=== PATIENT | male | born 1955 | race Caucasian/White ===

== ENCOUNTER 2016-09-29 03:03 | Emergency (ER) | payer OTHER ==
[~2016-09-29] VITALS: Ht 162.6 cm; Wt 79.1 kg
[2016-09-29 03:07] VITALS: Ht 162.6 cm; Wt 79.1 kg
--- NOTE | 2016-09-29 04:00 | ERA ---
ER Documentation Chief Complaint Date/Time DATE: 09/29/16 TIME: 03:59 Chief Complaint dizziness/vomiting x 1 hour. feels high blood pressure at home. no cp HPI The patient is a 60-year-old male, presenting to the ER because of acute vertigo , he feels as if the room is spinning. Has similar symptoms previously, complains of right ear with decreased hearing. He denies syncope, near syncope , neck pain, chest pain, abdominal pain, vomiting, dysuria, diarrhea. He does not smoke nor drink Past medical history: Hypertension, diabetes mellitus, insomnia past Surgical history: None ROS All systems reviewed and are negative except as per history of present illness. Medications Home Meds Active Scripts Ondansetron (Ondansetron Odt) 4 Mg Tab.rapdis, 4 MG PO Q6H Y for NAUSEA AND/OR VOMITING, #10 TAB Prov:CAMACHO WILLIS MD 09/29/16 Meclizine Hcl* (Antivert*) 12.5 Mg Tab, 25 MG PO Q6H Y for DIZZINESS, #20 TAB Prov:CAMACHO WILLIS MD 09/29/16 Allergies Allergies: Coded Allergies: No Known Allergy (Unverified , 12/04/14) PMhx/Soc Hx Cardiac Disorders: Yes (HTN) Hx Miscellaneous Medical Probl: Yes (DM) Hx Alcohol Use: No Hx Substance Use: No Hx Tobacco Use: No Physical Exam Vitals Vital Signs Date Time Temp Pulse Resp B/P Pulse Ox O2 Delivery O2 Flow Rate FiO2 09/29/16 05:31 97.9 72 18 148/71 98 Room Air 09/29/16 03:07 97.9 87 20 168/79 100 Physical Exam Const: No acute distress. Head: Atraumatic. Eyes: Normal Conjunctiva. ENT: Normal External Ears, Nose and Mouth. Right ear with moderate amount of cerumen Neck: Full range of motion. No meningismus. Resp: Clear to auscultation bilaterally. Cardio: Regular rate and rhythm, no murmurs. Abd: Soft, non distended, normal bowel sounds, non tender. Skin: No petechiae or rashes. Back: No midline or flank tenderness. Ext: No cyanosis, or edema. Neur: Awake and alert. No focal deficit Psych: Normal Mood and Affect. Results 24 hrs Current Medications Medications (Trade) Dose Ordered Sig/Sangeeta Route PRN Reason Start Time Stop Time Status Last Admin Dose Admin Meclizine HCl (Antivert) 25 mg ONCE ONCE PO 09/29/16 04:30 09/29/16 04:31 DC 09/29/16 04:27 Ondansetron HCl (Zofran Odt) 4 mg ONCE STAT ODT 09/29/16 04:58 09/29/16 04:59 DC 09/29/16 05:14 Procedures/MDM EKG: Read by emergency physician Rate/Rhythm: Normal Sinus Rhythm 68 beats/min QRS, ST, T-waves: No ST elevation, no T inversion, inferior Q waves Impression: Abnormal EKG [place] [id number] Radiology Main Line: [phone] DIAGNOSTIC IMAGING REPORT Patient: DENISE SPAULDING : 1955 Age: 60 Sex: M MR #: [id number] DOS: 09/29/16 0415 Ordering MD: CAMACHO WILLIS MD Location: E/R Room/Bed: PROCEDURE: CT BRAIN WITHOUT CONTRAST CLINICAL INDICATION: 60-year-old male with dizziness. TECHNIQUE: The study was performed utilizing [employer] VCT 64-slice CT scanner. Direct axial sections were obtained from the foramen magnum to the vertex without the use of intravenous contrast material. Sagittal and coronal reformations were obtained. Automated exposure control and iterative reconstruction techniques were utilized for this examination. The images were viewed on a PACS workstation. CTD/vol = 36.2 mGy; Total Exam DLP = 634.2 mGy- cm. COMPARISON: And December 04, 2014. FINDINGS: There is mild prominence of the sulci and cisternal spaces consistent with diffuse volume loss. Otherwise, the ventricles have a normal shape and position. The ventricular configuration is without significant interval change. There is no evidence for mass effect or midline shift. There are no intracranial areas of abnormal attenuation. There is no evidence for acute intra or extra-axial blood. The bony calvarium is intact. There is mild mucosal thickening within the ethmoid air cells bilaterally. No air-fluid levels are noted. The mastoid air cells are without significant soft tissue. IMPRESSION: 1. Mild diffuse volume loss. 2. Mild mucosal thickening ethmoid air cells. .Pravin Vasquez MD, MD Date Time Electronically viewed and signed by .Pravin Vasquez MD, MD on 09/29/2016 04:51 .M/ CC: CAMACHO WILLIS MD MEDICAL MAKING DECISION: The patient is a 60-year-old male, presenting with acute dizziness, most likely benign positional vertigo. He was treated with Antivert and Zofran with good response. The differential diagnoses considered include but are not limited to central causes such as cerebellar infarct, cerebellar hemorrhage, cerebellar tumor, acoustic neuroma, peripheral causes such as benign positional vertigo, labyrinthitis, medication, Meniere's disease. Departure Diagnosis: Primary Impression: Dizziness Condition: Good Comments I discussed the findings with the patient. I advised the patient to follow-up with the primary physician in about 1-2 days, sooner if needed and return if any concern. CAMACHO WILLIS MD Sep 29, 2016 04:00
[2016-09-29] MEDS ORDERED: MECLIZINE 12.5 MG TAB PO ONE (04:30)
--- NOTE | 2016-09-29 04:51 | RADRPT ---
PROCEDURE: CT BRAIN WITHOUT CONTRAST CLINICAL INDICATION: 60-year-old male with dizziness. TECHNIQUE: The study was performed utilizing [employer] VCT 64-slice CT scanner. Direct axial sections were obtained from the foramen magnum to the vertex without the use of intravenous contrast material. Sagittal and coronal reformations were obtained. Automated exposure control and iterativ e reconstruction techniques were utilized for this examination. The images were viewed on a PACS [employer]. CTD/vol = 36.2 mGy; Total Exam DLP = 634.2 mGy-cm. COMPARISON: And December 04, 2014. FINDINGS: There is mild prominence of the sulci and cisternal spaces consistent with diffuse volume loss. Oth erwise, the ventricles have a normal shape and position. The ventricular configuration is without si gnificant interval change. There is no evidence for mass effect or midline shift. There are no int racranial areas of abnormal attenuation. There is no evidence for acute intra or extra-axial blood. The bony calvarium is intact. There is mild mucosal thickening within the ethmoid air cells bilater ally. No air-fluid levels are noted. The mastoid air cells are without significant soft tissue. IMPRESSION: 1. Mild diffuse volume loss. 2. Mild mucosal thickening ethmoid air cells. .Pravin Vasquez MD, MD Date Time Electronically viewed and signed by .Pravin Vasquez MD, on 09/29/2016 04:51 .M/
[2016-09-29] MEDS ORDERED: ONDANSETRON (ODT) 4 MG TAB ODT STA (04:58)
[2016-09-29] MEDS ORDERED: MECL12.574 PO (05:05)
[2016-09-29] MEDS ORDERED: ONDA4TAB14 PO (05:06)
[2016-09-29 05:31] VITALS: BP 148/71; PULSE 72; RESP 18; TEMP 97.9
== END 2016-09-29 05:34 | disposition home or self-care (01) ==
LOC: E/R 03:03
DX: R42 Dizziness and giddiness (principal); I10 Essential (primary) hypertension; E11.9 Type 2 diabetes mellitus without complications; R11.10 Vomiting, unspecified
CPT/HCPCS: 70450; 93005; Z7502; Z7610

== ENCOUNTER 2016-10-09 15:54 | Emergency (ER) | payer OTHER ==
[~2016-10-09] VITALS: Wt 81.0 kg
[~2016-10-09 15:54] MED LIST: MECL12.574 PO; ONDA4TAB14 PO
[2016-10-09] MEDS ORDERED: IBUPROFEN 600 MG TAB PO ONE (17:00)
[2016-10-09] MEDS ORDERED: ACETAMINOPHEN/CODEINE #3 TAB PO ONE (17:00)
[2016-10-09] MEDS ORDERED: TRAM50TA2 PO (18:38)
[2016-10-09] MEDS ORDERED: IBUP-1542 PO (18:38)
--- NOTE | 2016-10-09 18:41 | ERD ---
ER Documentation Chief Complaint Date/Time DATE: 10/09/16 TIME: 18:40 Chief Complaint LEFT LEG PAIN AFTER FALL YESTERDAY HPI 60-year-old male complains of left knee pain after tripping and falling yesterday directly onto his left knee. He has pain in the left patella. Denies bleeding, redness, restricted range of motion or weakness. ROS All systems reviewed and are negative except as per history of present illness. Medications Home Meds Active Scripts Tramadol HCl (Tramadol HCl) 50 Mg Tablet, 50 MG PO Q4 Y for PAIN, #20 TAB Prov:AUSTIN SCHWAB MD 10/09/16 Ibuprofen* (Motrin*) 600 Mg Tab, 600 MG PO Q6, #20 TAB Prov:AUSTIN SCHWAB MD 10/09/16 Ondansetron (Ondansetron Odt) 4 Mg Tab.rapdis, 4 MG PO Q6H Y for NAUSEA AND/OR VOMITING, #10 TAB Prov:CAMACHO WILLIS MD 09/29/16 Meclizine Hcl* (Antivert*) 12.5 Mg Tab, 25 MG PO Q6H Y for DIZZINESS, #20 TAB Prov:CAMACHO WILLIS MD 09/29/16 Allergies Allergies: Coded Allergies: No Known Allergy (Unverified , 12/04/14) PMhx/Soc History of Surgery: No Anesthesia Reaction: No Hx Respiratory Disorders: No Hx Cardiac Disorders: Yes (HTN) Hx Psychiatric Problems: No Hx Miscellaneous Medical Probl: Yes (DM) Hx Alcohol Use: No Hx Substance Use: No Hx Tobacco Use: No Physical Exam Vitals Vital Signs Date Time Temp Pulse Resp B/P Pulse Ox O2 Delivery O2 Flow Rate FiO2 10/09/16 16:03 98.0 93 18 133/62 99 Physical Exam Const: [] Alert, [id number]. Head: Atraumatic Eyes: Normal Conjunctiva ENT: Normal External Ears, Nose and Mouth. Neck: Full range of motion..~ No meningismus. Resp: Clear to auscultation bilaterally Cardio: Regular rate and rhythm, no murmurs Abd: Soft, non tender, non distended. Normal bowel sounds Skin: No petechiae or rashes Back: No midline or flank tenderness Ext: No cyanosis, or edema. There is some tenderness mild swelling of the left patella. There is no appreciable deformities, effusion, erythema, bleeding. There is no calf swelling or Homans sign. The left lower extremity is neurovascular intact without evidence of deficits or weakness. Neur: Awake and alert Psych: Normal Mood and Affect Results 24 hrs Current Medications Medications (Trade) Dose Ordered Sig/Sangeeta Route PRN Reason Start Time Stop Time Status Last Admin Dose Admin Ibuprofen (Motrin) 600 mg ONCE ONCE PO 10/09/16 17:00 10/09/16 17:01 DC 10/09/16 17:09 Acetaminophen/ Codeine Phosphate (Tylenol No.3) 1 tab ONCE ONCE PO 10/09/16 17:00 10/09/16 17:01 DC 10/09/16 17:09 Procedures/MDM X-ray Knee left 4V with patella interpreted by me: Bones: [No fracture] Joints: [No dislocation] Foreign body: [None]. Impression-degenerative changes left knee. Patient was given ibuprofen for pain and placed in left knee immobilizer. Splint Assessment: Neurovascularly intact post splint placement with good fit. Patient has signs and symptoms of left knee contusion without evidence of fracture, dislocation, bacterial infection, DVT, deficits. He will be treated with ibuprofen and tramadol instructions to follow-up with his primary doctor possibly orthopedist for further evaluation for persistent pain. She does return for fevers, redness, new worsening symptoms or Departure Diagnosis: Primary Impression: Contusion Encounter type: initial encounter Contusion area: knee Laterality: left Qualified Code: S80.02XA - Contusion of left knee, initial encounter Condition: Stable Patient Instructions: Contusion, Lower Extremity Referrals: SHREYAS JOHNS MD Additional Instructions: x ray solo dice tiene artritis. no fractura. Cheque otro vez con estevez doctor primario en el proximo [facility]stein or regresa para mas o nueva simptomas. AUSTIN SCHWAB MD Oct 09, 2016 18:41
--- NOTE | 2016-10-09 18:48 | RADRPT ---
PROCEDURE: Left knee x-ray CLINICAL INDICATION: Trauma. TECHNIQUE: AP, lateral , tunnel and oblique views of the left knee were obtained. COMPARISON: None FINDINGS: There is normal mineralization. No acute fracture or dislocation is seen. Tricompartment degenerative changes with marginal osteophytes. There is a moderate joint effusion. Medial joint compartment narrowing is at least mild, and conside r weightbearing series for further evaluation. Soft tissue swelling over the anterior knee. IMPRESSION: Moderate tricompartment degenerative changes, with anterior soft tissue swelling and moderate joint effusion. RPTAT: [facility] Physician Anne Date Time Electronically viewed and signed by Physician Anne on 10/09/2016 18:48 RS/
== END 2016-10-09 19:40 | disposition home or self-care (01) ==
LOC: FTE 15:54
DX: S80.02XA Contusion of left knee, initial encounter (principal); I10 Essential (primary) hypertension; E11.9 Type 2 diabetes mellitus without complications; W01.0XXA Fall on same level from slipping, tripping and stumbling without subsequent striking against object, initial encounter
CPT/HCPCS: 29505; 73564; Z7502; Z7610

== ENCOUNTER 2017-12-03 16:57 | Emergency (ER) | END 2017-12-03 20:26 | disposition home or self-care (01) ==

== ENCOUNTER 2018-06-19 06:22 | Emergency (ER) | END 2018-06-19 09:48 | disposition home or self-care (01) ==

== ENCOUNTER 2019-03-18 08:30 | Emergency (ER) | payer OTHER ==
[~2019-03-18] VITALS: Ht 162.6 cm; Wt 78.6 kg
[~2019-03-18 08:30] MED LIST changes: +CEPH-443 PO; +IBUP-1542 PO; +ONDA4TAB8 PO; +SULF1TAB31 PO; +TRAM50TA2 PO
[2019-03-18 08:34] VITALS: Ht 162.6 cm; Wt 78.6 kg
[2019-03-18] MEDS ORDERED: SOD CHLORIDE 0.9% 1,000 ML IV STA (08:43)
[2019-03-18 09:48] VITALS: BP 136/70; PULSE 75; RESP 20
--- NOTE | 2019-03-18 09:52 | ERD ---
ER Documentation Chief Complaint Chief Complaint feels weak HPI 63-year-old male presenting with numbness to his hands and increased urination. Patient states that he feels more sweaty than normal but denies any headaches or weakness. He states that he does not have any vomiting and no visual changes. Denies dizziness. Denies chest pains or shortness of breath. Medical history diabetes on metformin but no insulin. NKDA. Surgical history denies. Social history denies ROS All systems reviewed and are negative except as per history of present illness. Medications Home Meds Active Scripts Cephalexin* (Keflex*) 500 Mg Capsule, 500 MG PO QID for 10 Days, CAP Prov:OFELIA SALOMON MD 02/24/19 Sulfamethoxazole/Trimethoprim* (Bactrim Ds* Tablet) 1 Each Tablet, 1 TAB PO BID, #20 TAB Prov:OFELIA SALOMON MD 02/24/19 Ondansetron (Ondansetron Odt) 4 Mg Tab.rapdis, 4 MG PO Q6H PRN for NAUSEA AND/OR VOMITING, #10 TAB Prov:MARTINA LEZAMA MD 06/19/18 Meclizine Hcl* (Antivert*) 12.5 Mg Tab, 25 MG PO Q6H PRN for DIZZINESS, #20 TAB Prov:MARTINA LEZAMA MD 06/19/18 Ondansetron Hcl* (Zofran*) 4 Mg Tablet, 4 MG PO Q6H for NAUSEA AND/OR VOMITING, #30 TAB Prov:MITCH CRISTINA C 12/03/17 Meclizine Hcl* (Antivert*) 12.5 Mg Tab, 12.5 MG PO Q6H PRN for DIZZINESS, #20 T AB Prov:MITCH CRISTINA C 12/03/17 Tramadol HCl (Tramadol HCl) 50 Mg Tablet, 50 MG PO Q4 PRN for PAIN, #20 TAB Prov:AUSTIN SCHWAB MD 10/09/16 Ibuprofen* (Motrin*) 600 Mg Tab, 600 MG PO Q6, #20 TAB Prov:AUSTIN SCHWAB MD 10/09/16 Ondansetron (Ondansetron Odt) 4 Mg Tab.rapdis, 4 MG PO Q6H PRN for NAUSEA AND/OR VOMITING, #10 TAB Prov:CAMACHO WILLIS MD 09/29/16 Meclizine Hcl* (Antivert*) 12.5 Mg Tab, 25 MG PO Q6H PRN for DIZZINESS, #20 TAB Prov:CAMACHO WILLIS MD 09/29/16 Allergies Allergies: Coded Allergies: No Known Allergy (Unverified , 12/03/17) PMhx/Soc Medical and Surgical Hx: pt denies Surgical Hx History of Surgery: No Anesthesia Reaction: No Hx Neurological Disorder: Yes Hx Respiratory Disorders: No Hx Cardiac Disorders: Yes (HTN) Hx Psychiatric Problems: No Hx Miscellaneous Medical Probl: No Hx Alcohol Use: No Hx Substance Use: No Hx Tobacco Use: No FmHx Family History: No diabetes, No coronary disease, No other Physical Exam Vitals Vital Signs Date Temp Pulse Resp B/P (MAP) Pulse Ox O2 O2 Flow FiO2 Time Delivery Rate 03/18/19 96.4 86 20 131/62 100 08:34 (85) Physical Exam GENERAL: The patient is well-appearing, well-nourished, in no acute distress HEENT: Atraumatic. Conjunctivae are pink. Pupils equal, round, and reactive to light. There is no scleral icterus. Tympanic membranes clear bilaterally. Oropharynx clear. CHEST: Clear to auscultation bilaterally. There are no rales, wheezes or rhonchi. HEART: Regular rate and rhythm. No murmurs, clicks, rubs or gallops. ABDOMEN:Soft, nontender and nondistended. Good bowel sounds. No rebound or guarding. No gross peritonitis. No gross organomegaly or masses. EXTREMITIES: Equal pulses bilaterally. There is no peripheral clubbing, cyanosis or edema. No focal swelling or erythema. Full range of motion. NEUROLOGIC: Alert and oriented. Cranial nerves II through XII intact. Motor strength in all 4 extremities with 5 out of 5 strength. Sensation grossly intact. Normal speech and gait. SKIN: There is no apparent rash or petechiae. The skin is warm and dry. Result Diagram: 03/18/19 0849 03/18/19 0849 Results 24 hrs Laboratory Tests Test 03/18/19 08:49 White Blood Count 13.7 10^3/ul Red Blood Count 4.67 10^6/ul Hemoglobin 13.5 g/dl Hematocrit 43.1 % Mean Corpuscular Volume 92.3 fl Mean Corpuscular Hemoglobin 28.9 pg Mean Corpuscular Hemoglobin Concent 31.3 g/dl Red Cell Distribution Width 13.2 % Platelet Count 249 10^3/UL Mean Platelet Volume 12.1 fl Immature Granulocytes % 0.400 % Neutrophils % 88.4 % Lymphocytes % 6.3 % Monocytes % 4.6 % Eosinophils % 0.1 % Basophils % 0.2 % Nucleated Red Blood Cells % 0.0 /100WBC Immature Granulocytes # 0.060 10^3/ul Neutrophils # 12.1 10^3/ul Lymphocytes # 0.9 10^3/ul Monocytes # 0.6 10^3/ul Eosinophils # 0.0 10^3/ul Basophils # 0.0 10^3/ul Nucleated Red Blood Cells # 0.0 10^3/ul Urine Color YELLOW Urine Clarity CLEAR Urine pH 6.0 Urine Specific [place] 1.009 Urine Ketones TRACE mg/dL Urine Nitrite NEGATIVE mg/dL Urine Bilirubin NEGATIVE mg/dL Urine Urobilinogen NEGATIVE mg/dL Urine Leukocyte Esterase NEGATIVE Bina/ul Urine Hemoglobin NEGATIVE mg/dL Urine Glucose NEGATIVE mg/dL Urine Total Protein NEGATIVE mg/dl Sodium Level 142 mmol/L Potassium Level 4.9 mmol/L Chloride Level 101 mmol/L Carbon Dioxide Level 33 mmol/L Anion Gap 8 Blood Urea Nitrogen 17 mg/dl Creatinine 0.70 mg/dl Est Glomerular Filtrat Rate mL/min > 60 mL/min Glucose Level 66 mg/dl Calcium Level 9.9 mg/dl Total Bilirubin 0.3 mg/dl Direct Bilirubin 0.00 mg/dl Indirect Bilirubin 0.3 mg/dl Aspartate Amino Transf (AST/SGOT) 34 IU/L Alanine Aminotransferase (ALT/SGPT) 31 IU/L Alkaline Phosphatase 86 IU/L Total Protein 9.1 g/dl Albumin 4.5 g/dl Globulin 4.60 g/dl Albumin/Globulin Ratio 0.97 Lipase 136 U/L Current Medications Medications Dose Sig/Sangeeta Start Time Status Last (Trade) Ordered Route PRN Stop Time Admin Dose Reason Admin Sodium 1,000 ml @ Q1H STAT 03/18/19 DC 03/18/19 Chloride 1,000 mls/hr IV 08:43 08:53 03/18/19 09:42 Procedures/MDM ER course: Blood work within normal limits. 1 L normal saline given in ED. Food given in ED. Upon reevaluation patient states his symptoms have improved. DM: 63-year-old male presenting with paresthesias. I have low suspicion for cardiac or neuro deficit. I have low suspicion for pulmonary abnormality. I have left low suspicion for electrolyte abnormality. Patient is discharged and recommended to follow-up with primary care. I do not feel imaging is indicated patient symptoms and exam are within normal limits. Vitals are stable. Patient is discharged with supportive medications and told to follow-up with primary care within 1 to 2 days for close evaluation. Patient is told if symptoms change or worsen to return immediately to the ER. All questions answered at discharge Departure Diagnosis: Primary Impression: Hand paresthesia Condition: Stable Patient Instructions: Paraesthesias Additional Instructions: FOLLOW UP WITH YOUR PRIMARY CARE PHYSICIAN TOMORROW.Return to this facility if you are not improving as expected. DAKOTAH CASTRO PA-C Mar 18, 2019 09:52
== END 2019-03-18 12:51 | disposition home or self-care (01) ==
LOC: FTE 08:30
DX: R20.2 Paresthesia of skin (principal); I10 Essential (primary) hypertension
CPT/HCPCS: 36415; 80053; 81003; 83690; 85025; 96360; J7030; Z7502